=== PATIENT | female | born 1995 | race Caucasian/White ===

== ENCOUNTER 2019-12-15 11:06 | Emergency (ER) | payer OTHER, SELFPAY ==
[2019-12-15 11:35] VITALS: BP 118/70; PULSE 68; RESP 16; TEMP 36.6; O2SAT 100
--- NOTE | 2019-12-15 12:28 | ED.URI ---
HPI - URI/Sore Throat General Chief Complaint: Upper Respiratory Infection Stated Complaint: Flu Test Time Seen by Provider: 12/15/19 12:28 Source: patient and family History of Present Illness HPI Narrative: Patient was sent in for testing for influenza and strep. Patient had emesis x1 at work last night and was sent home from work due to illness. Patient states her symptoms have since resolved denies any cough no fever no shortness of breath no chest pain. Patient reports normal appetite normal activity states she is a normally healthy individual and just he needs a note to return to work tomorrow. MD elicited complaint: cough, sore throat and rhinorrhea Related Data Home Medications Medication Instructions Recorded Confirmed norgestimate-ethinyl estradiol 1 tablet PO DAILY 12/15/19 12/15/19 [Estarylla] Allergies Allergy/AdvReac Type Severity Reaction Status Date / Time Penicillins Allergy Unknown Unknown Verified 12/15/19 11:48 Review of Systems Review of Systems: Narrative: CONSTITUTIONAL: Denies chills, or sweats. Reports fever and generalized body aches EYES: Denies visual changes, redness, or discharge. ENT: Denies otalgia. Reports nasal congestion runny nose and sore throat CARDIOVASCULAR: Denies chest pain, palpitations, or edema. RESPIRATORY: Denies dyspnea. Reports occasional cough GASTROINTESTINAL: Denies abdominal pain, nausea, vomiting, or diarrhea. GENITOURINARY: Denies dysuria or hematuria. SKIN: Denies rash or itching. MUSCULOSKELETAL: Denies back pain, joint pain, or myalgia. Reports generalized body aches NEUROLOGIC: Denies headache, numbness, or weakness. PSYCHIATRIC: Denies anxiety or depression. PMFSH Family History Family History Mother Family history of malignant neoplasm of breast in first degree relative Social History Social History Smoking status: Never smoker Alcohol intake: never Comments At time of signature, agree with nursing past medical, surgical, social and family history. There is no relevant family history pertinent to the presenting complaint Exam Narrative: Exam Narrative: GENERAL APPEARANCE: The patient is a well-developed, well-nourished , in no acute distress. SKIN: Skin is warm and dry without erythema, swelling or exudate. There is good turgor. No tenting. HEAD: Atraumatic. Normocephalic. No temporal or scalp tenderness. EYES: Moist and bright. Sclera and conjunctivae normal. No discharge. PERRLA. Extraocular motions intact. Gross visual acuity intact. EARS: Pinna is normal shape and contour. Clear external auditory canals. TM pearly lomas with good cone of light, no erythema or suppuration. Bilateral cerumen noted no gross hearing deficit. NOSE: pink, moist mucosa with good air movement. Clear rhinorrhea without nasal flaring. Septum midline. Mouth: moist mucous membranes. THROAT; mild erythema noted to posterior oropharynx with moderate postnasal drainage. Without exudate or ulceration.. Uvula midline. Normal movement of soft palate. NECK: Supple and nontender with full range of motion without discomfort. No meningeal signs. LUNGS: Equal and bilateral breath sounds without wheezes, rales or rhonchi. CHEST: The chest wall is without retractions or use of accessory muscles. HEART: Has a regular rate and rhythm without murmur, gallops, click or rub. ABDOMEN: Soft, nontender with positive active bowel sounds. No rebound tenderness. EXTREMITIES: Without cyanosis, clubbing or edema. Equal 2+ distal pulses and 2 second capillary refill noted. NEUROLOGIC: alert, active, developmentally normal for age. The patient moves all extremities with normal muscle strength. Normal muscle tone is noted. Normal coordination is noted. NO focal neurological findings noted. Course Vital Signs Vital signs: Vital Signs Temperature 36.6 C 12/15/19 11:35 Pulse Rate 68
== END 2019-12-15 12:30 | disposition home or self-care (01) ==
PROVIDERS: Emergency Provider Nurse Practitioner Family
DX: J06.9 Acute upper respiratory infection, unspecified (principal)
CPT/HCPCS: 87804; 99213; G0463

== ENCOUNTER 2025-04-15 17:16 | Emergency (ER) | payer OTHER, SELFPAY ==
--- OUTSIDE RECORDS SUMMARY | 2025-04-15 17:18 | XMS_ITS | Clinical Summary ---
Author Organization [facility] [address] Address [address] [place] [address] Phone Care Team Providers Care Senior Business Consultant Name Role Phone Andrew Walton MD Primary Care Provider [phone] Allergies Active Allergy Reactions Criticality Noted Date Comments Ray Swelling Medium 05/27/2018 LIP SWELLING Penicillin Hives,Rash Medium Reaction: Rash, Medications spironolactone (ALDACTONE) 50 mg tablet Take 150 mg by mouth daily Active multivitamin capsule Take 1 capsule by mouth daily Active Zenatane 40 mg capsule 12/03/2022 Active Active Problems Problem Noted Date Diagnosed Date Genital warts 10/25/2019 Overweight 10/23/2018 Mild intermittent asthma 05/10/2015 Overview (01/03/2017): Mild intermittent asthma Acne 04/29/2013 Overview (01/01/2017): Acne Headache 08/09/2008 Overview (01/03/2017): Headache Atopic rhinitis 07/20/2007 Overview (01/01/2017): Allergic rhinitis Recurrent sinusitis 09/24/2006 Overview (01/01/2017): Recurrent sinusitis Resolved Problems Problem Noted Date Diagnosed Date Resolved Date Acute streptococcal pharyngitis 08/12/2014 05/14/2020 Overview (05/14/2020): See office note. Medical examinations/reports status 04/27/2013 05/14/2020 Overview (01/01/2017): Health care maintenance Patellofemoral syndrome 01/19/201004/29 Overview (05/14/2020): [facility], details lacking. Asthma 11/09/1999 05/14/2020 Overview (01/03/2017): Asthma Immunizations Immunization Administration Dates Next Due DTaP 5 Pertussis 12/21/2002, 9,06/19/1998,04/17,02/14/1998 HPV9 05/15/2021,01/08/2021,11/09/2020 Hep B, Adolescent or Pediatric 06/19/1998,1997,1997 Hib (HbOC) 03/23/1999, 8,04/17/1998,02/14 IPV 12/21/2002, 9,04/17/1998,02/14 Influenza, Trivalent, IM (MDV) 08/09/2008,2006 MMR 12/21/2002,12/18/1998 Meningococcal MCV4P (Menactra) 05/10/2015 Meningococcal Polysaccharide (Menomune) 04/10/2011 Tdap 05/16/2009 Varicella 04/29/2014,12/18/1998 Surgical History Surgery Date Site/Laterality Comments OTHER SURGICAL HISTORY R tibial tuberosisity avulsion FX: Dr. Baez TONSILLECTOMY 09/29/2017 - 09/28/2018 WISDOM TOOTH EXTRACTION Medical History Medical History Date Comments Medical examinations/reports status 04/27/2013 Health care maintenance Asthma 11/09/1999 Asthma Acute streptococcal pharyngitis 08/12/2014 See office note. Patellofemoral syndrome 01/19/2010 [facility], det ails lacking. Tibial fracture 2007 R tibial tuberos isity avulsion FX Family History Medical History Relation Name Comments Melanoma Father somewhere in hi s 40's Skin cancer Maternal Grandfather hx agen t orange Breast cancer Maternal Grandmother Cancer , breast; Allergies Mother Allergies; Spri ng and fall Breast cancer Mother Cancer, breast ; RED 11/13/2015 -Negative genetic testing age 37 per 2021 questionnaire Ovarian cancer Mother's Sister Cancer, ov farzana; Other Other 1 Not doing so we ll as of 8-12. Other Other 2 Not doing so we ll as of 8-12. Coronary artery disease Other 3 Fami ly history of Coronary artery disease; Other Other 4 Not doing so we ll as of 8--12. Diabetes Other 5 Family history of Diabetes mellitus; Other Other 6 Not doing so we ll as of 8--12. Hypertension Other 7 Family history of Hypertension; Other Other 8 Not doing so we ll as of 8--12. Migraines Other 9 Family history of Migraines; Other Other 10 Not doing so we ll as of 8--12. Thyroid disease Other 11 Family histo ry of Thyroid disease; Other Other 12 Not doing so we ll as of 8--12. Other Other 13 Family history of Deafness; Other Other 14 Not doing so we ll as of 8--12. Other Other 15 Family history of Eating disorder; Other Other 16 Not doing so we ll as of 8--12. Other Other 17 No family histo ry of Sudden <50; Other Other 18 Not doing so we ll as of 8--12. Other Other 19 Not doing so we ll as of 8--12. Breast cancer Other 20 [facility]M Cancer, breast ; Other Other 21 Not doing so we ll as of 8--12. Other Other 22 Not doing so we ll as of 8--12. Relation Name Status Comments Father Maternal Grandfather Maternal Grandmother Mother Mother's Sister Other 1 Other 2 Other 3 Other 4 Other 5 Other 6 Other 7 Other 8 Other 9 Other 10 Other 11 Other 12 Other 13 Other 14 Other 15 Other 16 Other 17 Other 18 Other 19 Other 20 MGGM Other 21 Other 22 Social History Tobacco Use Types Packs/Day Years Used Date Smoking Tobacco: Former Smokeless Tobacco: Never Tobacco Cessation:Counseling Given: Not Answered Comments:socially Alcohol Use Standard Drinks/Week Comments Yes 0 (1 standard drink = 0.6 oz pur e alcohol) AUDIT-C Answer Date Recorded Q1: How often do you have a drink containing alc ohol? Monthly or less 12/24/2021 Average Number of Drinks Not on file 022 Frequency of Binge Drinking Not on file 11/28 Comments No Sex and Gender Information Value Date Recorded Sex Assigned at Not on file Legal Sex Female 8:49 AM DIRECTOR OF BUSINESS CONTINUITY Gender Identity Not on file Sexual Orientation Not on file Occupation Industry Job Start Date Job End Date [employer] title Not on file Not on file Not on file History Length Weight Head Circum Date/Time Gestation Age D/C Weight APGARs Delivery Method Feeding 1995 Uncomplicated , det ails lacking. Obstetrics History Para Term AB IAB SAB Ectopic Multiple Livin g Live Births 0 0 0 0 0 0 0 0 0 0 0 Last Filed Vital Signs Vital Sign Reading Time Taken Comments Blood Pressure 124/76 12/24/2022 8:45 AM CDT Pulse 79 05/27/2018 10:11 AM CDT Temperature 36.2 C (97.1 F) 05/27/2018 10:11 AM CDT Respiratory Rate - - Oxygen Saturation 98% 05/27/2018 10:11 AM CDT Inhaled Oxygen Concentration - - Weight 85.8 kg (189 lb 3.2 oz) 12/24/2022 8:45 A M CDT Height 163.8 cm (5' 4.5) 12/24/2022 8:45 AM CDT Body Mass Index 31.97 12/24/2022 8:45 AM CDT Plan of Treatment Health Maintenance Due Date Last Done Comments Depression Screening 1995 Hepatitis C Screening 1997 Pneumococcal vaccine <65 (1 of 2 - PCV) 2016 DTaP/Tdap/Td Vaccine (7 - Td or Tdap) 05/16/2019 05/16/2009, 12/21/2002, 03/23/1999, Additional history exists Cervical Cancer Screening 12/25/20232022, 11/16/2021, 11/09/2020, Additional history exists Regular Well Visit/Exam 18-64 12/25/2023, 11/16/2021, 11/09/2020, Additional history exists Influenza Vaccine (#1) 2025 , 08/09/2008, 09/04/2007 Hepatitis B Screening Completed 06/19/1998 , 02/14/1998, 1997 Varicella Vaccines Completed 04/29/2014, 12/18/1998 HPV Vaccines Completed 05/15/2021, 12/28, 11/09/2020 Procedures Procedure Name Priority Date/Time Associated Diagnosis Comments PAP WITH REFLEX TO HIGH RISK HPV Routine 12/24/2022 7:57 AM CDT Screening for malignant neoplasm of the cervix Papanicolaou smear of cervix with atypical squamous cells of undetermined significance (ASC-US) from Last 3 Months or Most Recently Relevant to Health Maintenance Results * Pap with reflex to High Risk HPV (12/24/2022 7:57 AM CDT) Thin prep (Pap test) 12/24/2022 7:57 AM CDT 12/24/2022 7:57 AM CDT Narrative PATHOLOGY - 12/26/2022 5:22 PM CDT [facility] Department of Pathology [address] [place] [address] Final Report Note to Patients: This report may contain a detailed description of human tissue sent by a health care provider to the laboratory for pathologic evaluation. The content of this report is essential for diagnosis and may provide important critical findings. This information may be unfamiliar to patients to review without a medical professional present. It is advised that the patient review this report in the presence of a health care provider who can answer questions and explain the details. Patient Name: ARVIND VALDEZ Address: [address] [place] [address] Gender: F : 1995 (Age: 27) Service: Location: [facility] : [id number] [facility] #: [id number] Patient Type: SPECIMEN Taken: 12/24/2022 Received: 12/24/2022 Accessioned:: 12/25/2022 Reported: 12/26/2022 Physician(s): MD Amalia Khan MD Diagnosis: SOURCE OF SPECIMEN Imaged Thinprep Pap Test w/ Reflex HPV - Mobile Designer Cytologic Material: STATEMENT OF ADEQUACY - Specimen satisfactory for interpretation; endocervical/transformation zone component absent or insufficient GENERAL CATEGORIZATION: - Negative for intraepithelial lesion or malignancy INTERPRETATION: - Fungal organisms present, morphologically consistent with davina species BAY Hernandez(ASCP)BAY Ramos(ASCP) Report Electronically Reviewed and Signed Out By BAY Ramos(ASCP) 12/26/2022 17:22:39Specimen(s) Received: A: Imaged Thinprep Pap Test w/ Reflex HPV - Mobile Designer Cytologic Material Clinical History: Last Menstrual Period: 12/15/22 Menstrual History: Previous Abnormal Pap: 10/2021 ASCUS Clinical History: colposcopy 11/2021 normal cervical biopsy The Pap test is a screening test used to aid in the detection of cervical cancer and its precursors. It should not be the sole means by which malignant and premalignant lesions are diagnosed. Both false negative and false positive results may occur. It also has poor sensitivity for the detection of endometrial lesions and should not be used to evaluate suspected endometrial abnormalities. For these reasons it is most important to obtain Pap tests at regular intervals. The performance characteristics of some immunohistochemical stains, fluorescence in-situ hybridization tests and immunophenotyping by flow cytometry cited in this report (if any) were determined by the Surgical Pathology Department at [facility] as part of an ongoing director of quality control program and in compliance with federally mandated regulations drawn from the Clinical Laboratory Improvement Act of 1988 (CLIA '88). Some of these tests rely on the use of analyte specific reagents and are subject to specific labeling requirements by the US Food and Drug Administration. Such diagnostic tests may only be performed in a facility that is certified by the Department of Health and Human Services as a high complexity laboratory under CLIA '88. The FDA has determined that such clearance or approval is not necessary. This test is used for clinical purposes. It should not be regarded as investigational or for research. Nevertheless, federal rules concerning the medical use of analyte specific reagents require that the following disclaimer be attached to the report: This test was developed and its performance characteristics determined by the Surgical Pathology Department [facility]. It has not been cleared or approved by the U. S. Food and Drug Administration. Amalia Rangel MD LAB CYTOLOGY ORDERABL ES Final Result PATHOLOGY [id number] [place] [address] from Last 3 Months or Most Recently Relevant to Health Maintenance Insurance [facility] CHOICE PL[employer] [facility] HMO/PPO Address: [place] [address] [facility] [place] [address] [facility] CHOICE PLUS [facility] H[facility]/PPO Address: [facility] [id number] [place] [id number] Care Teams Senior Business Consultant Relationship Specialty Start Date End Date Andrew Walton MD [address] [address] PCP - General Family Medicine 11/16/21
--- OUTSIDE RECORDS SUMMARY | 2025-04-15 17:18 | XMS_ITS | Clinical Summary ---
Author Organization [facility] Address [address] [facility] [place] [address] Care Team Providers Care Mallet Cutter Name Role Phone Amalia Rangel MD Primary Care Provide r Unavailable Source Comments [facility],non-owned Affiliates and Associated Physician Practices is amultiple site organization consisting of ambulatory clinics and hospital sitesin [place], [place], [place] and [place]. This disclosure is being madepursuant to the Care Everywhere program and may not contain all information available regarding this patient. Last updated [email or web address] [facility] Allergies Active Allergy Reactions Criticality Noted Date Comments Penicillins Swelling 01/19/2010 Medications * Be aware that medications may not be up to date on this document. Alwaysverify current medications with the patient. SPIRONOLACTONE PO Ac tive Norethin Naga-Eth Estrad-FE ( PO) Active Active Problems Problem Noted Date Diagnosed Date Pain in limb 01/19/2010 Patellofemoral syndrome 01/19/2010 Family History Medical History Relation Name Comments Broken Bones Father Anesthesia Reaction Maternal Aunt Hypertension Maternal Aunt Cancer Maternal Grandfather Diabetes Maternal Grandfather Hypertension Maternal Grandfather Asthma Maternal Grandmother Cancer Maternal Grandmother Diabetes Maternal Grandmother Osteoporosis Maternal Grandmother Allergy (Severe) Maternal Uncle Cancer - Breast Mother Asthma Sister Relation Name Status Comments Father Alive Maternal Aunt Maternal Grandfather Maternal Grandmother Maternal Uncle Mother Sister Social History Tobacco Use Types Packs/Day Years Used Date Smoking Tobacco: Never Smokeless Tobacco: Never Alcohol Use Standard Drinks/Week Comments Yes 0 (1 standard drink = 0.6 oz pur e alcohol) Monthly Comments No Sex and Gender Information Value Date Recorded Sex Assigned at Not on file Legal Sex Female 8:47 AM COMPLAINT INVESTIGATIONS OFFICER Gender Identity Not on file Sexual Orientation Not on file Last Filed Vital Signs Vital Sign Reading Time Taken Comments Blood Pressure 110/66 10/26/2018 6:46 PM COMPLAINT INVESTIGATIONS OFFICER Pulse 79 10/26/2018 6:46 PM COMPLAINT INVESTIGATIONS OFFICER Temperature 37.1 C (98.7 F) 10/26/2018 6:46 PM COMPLAINT INVESTIGATIONS OFFICER Respiratory Rate - - Oxygen Saturation 98% 10/26/2018 6:46 PM COMPLAINT INVESTIGATIONS OFFICER Inhaled Oxygen Concentration - - Weight 68 kg (150 lb) 10/26/2018 6:46 PM COMPLAINT INVESTIGATIONS OFFICER Height 160 cm (5' 3) 10/26/2018 6:46 PM COMPLAINT INVESTIGATIONS OFFICER Body Mass Index 26.57 10/26/2018 6:46 PM COMPLAINT INVESTIGATIONS OFFICER Plan of Treatment Health Maintenance Due Date Last Done Comments HIV SCREENING 2012 HEPATITIS C SCREENING 12/11/2015 DTAP/TDAP/TD VACCINES (1 - Tdap) 2016 HEPATITIS B VACCINE (1 of 3 - 19+ 3-dose series) 2016 COVID-19 VACCINE ( - 2023-2 5 season) 2024 DEPRESSION SCREENING 09/29/2024 HPV VACCINE (1 - 3-dose SCDM series) 2024 INFLUENZA VACCINE (#1) 2025 8, 09/04/2007 ZOSTER VACCINE (1 of 2) 12/16/2047 HIB VACCINE Aged Out No longer eligi ble based on patient's age to complete this topic MENINGOCOCCAL (Group B) VACCINE SHARED DECISION-MAKING Aged Out No longer eligible based on patient's age to complete this topic MENINGOCOCCAL GROUPS A/C/Y/W VACCINE Aged Out No longer eligible b ased on patient's age to complete this topic PNEUMOCOCCAL VACCINE Aged Out No long er eligible based on patient's age to complete this topic Insurance Care Teams Mallet Cutter Relationship Specialty Start Date End Date Amalia Rangel MD PCP - General Obstetrics and Gynecology 03/01/18
--- OUTSIDE RECORDS SUMMARY | 2025-04-15 17:18 | XMS_ITS | Clinical Summary ---
Author Organization [facility] Address [address] [place] [address] Phone Care Team Providers Care Application Support Lead Name Role Phone Unavailable Primary Care Provider Unavailabl e Allergies Active Allergy Reactions Criticality Noted Date Comments Penicillin G Hives 02/10/2020 Penicillins Rash,Swelling 01/19/2010 Reaction: Rash, Medications ESTARYLLA 0.25-35 MG-MCG Tablet TK 1 T PO D 01/17/2020 Active spironolactone (ALDACTONE) 50 MG Tablet TAKE 3 TABLETS BY MOUTH EVERY DAY 05/28/2021 Active Immunizations Immunization Administration Dates Next Due Hib (HbOC) 03/23/1999, 8,04/17/1998,02/14 Human Papillomavirus (HPV) 9 -valent Vaccine 05/15/2021,01/08/2021,11/09/2020 Influenza Vaccine, Quadrivalent, PF 06/26/2021 Family History Medical History Relation Name Comments No Known Problems Father Cancer Maternal Grandfather Cancer Maternal Grandmother Diabetes Maternal Grandmother Cancer Mother Diabetes Paternal Grandfather Diabetes Paternal Grandmother No Known Problems Sister Relation Name Status Comments Father Alive Maternal Grandfather Maternal Grandmother Alive Mother Paternal Grandfather Paternal Grandmother Sister Alive Social History Tobacco Use Types Packs/Day Years Used Date Smoking Tobacco: Never Smokeless Tobacco: Never Tobacco Cessation:Counseling Given: Yes Alcohol Use Standard Drinks/Week Comments Yes 4 (1 standard drink = 0.6 oz pur e alcohol) AUDIT-C Answer Date Recorded Q1: How often do you have a drink containing alc ohol? 2-4 times a month 02/10/2020 Q2: How many drinks containi ng alcohol do you have on a typical day when you are drinking? 3 or 4 02/10/2020 Frequency of Binge Drinking Not on file 01/27 PHQ-2 Answer Date Recorded Total Score - Questions 1-9 0 05/31 Sexually Active Control Partners Comments Yes Oral Contraceptive Comments Unknown Sex and Gender Information Value Date Recorded Sex Assigned at Not on file Legal Sex Female 10:44 PM CDT Gender Identity Not on file Sexual Orientation Not on file Last Filed Vital Signs Vital Sign Reading Time Taken Comments Blood Pressure 118/68 06/26/2021 4:17 PM CDT Pulse 57 06/26/2021 4:17 PM CDT Temperature 36.7 C (98.1 F) 06/26/2021 4:17 PM CDT Respiratory Rate 16 06/26/2021 4:17 PM CDT Oxygen Saturation 100% 06/26/2021 4:17 PM CDT Inhaled Oxygen Concentration - - Weight 76.8 kg (169 lb 4.8 oz) 06/26/2021 4:17 P M CDT Height 162.6 cm (5' 4) 06/26/2021 4:17 PM CDT Body Mass Index 29.06 06/26/2021 4:17 PM CDT Plan of Treatment Health Maintenance Due Date Last Done Comments Hepatitis C Virus (HCV) Screening 1995 TdaP Immunization 1997 Hepatitis B Immunization (1 of 3 - 19+ 3-dose series) 2016 Pap Smear 2018 SARS-COV-2 Immunization ( season) 2024 Influenza Immunization (#1) 2025 06/26/2021 Respiratory Syncytial Virus (RSV) Immunization (Adult) (1 - 1-dose 75+ series) 2072 Human Papillomavirus (HPV) Immunization Completed 05/15/2021, 01/08/2021, 11/09/2020 Meningococcal Immunization (ACWY) Aged Out No longer eligible b ased on patient's age to complete this topic Pneumococcal Immunization Combined Aged Out No longer eligible b ased on patient's age to complete this topic Rotavirus Immunization Aged Out No lo nger eligible based on patient's age to complete this topic
--- OUTSIDE RECORDS SUMMARY | 2025-04-15 17:18 | XMS_ITS | Referral Summary ---
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 Department of Pathology [address] [place], [place] [id number] Final Report Note to Patients: This report [...] the details. Patient Name: ARVIND VALDEZ Address: [address] [place] [address] Gender: F : 1995 (Age: 27) Service: Location: N : [id number] [facility] #: [id number] Patient Type: SPECIMEN Taken: 12/24/2022 Received: 12/24/2022 Accessioned:: 12/25/2022 Reported: 12/26/2022 Physician(s): MD Amalia Khan MD Diagnosis: SOURCE OF SPECIMEN Imaged Thinprep Pap Test w/ Reflex HPV - Clinic Charge Nurse Cytologic Material: STATEMENT OF ADEQUACY - Specimen satisfactory for interpretation; endocervical/transformation zone component absent or insufficient GENERAL CATEGORIZATION: - Negative for intraepithelial lesion or malignancy INTERPRETATION: - Fungal organisms present, morphologically consistent with davina species BAY Hernandez(ASCP)BAY Ramos(ASCP) Report Electronically Reviewed and Signed Out By BAY Ramos(ASCP) 12/26/2022 17:22:39Specimen(s) Received: A: Imaged Thinprep Pap Test w/ Reflex HPV - Clinic Charge Nurse Cytologic Material Clinical History: Last Menstrual Period: [...] determined by the Surgical Pathology Department at [facility] as part of an ongoing quality control lead program and in compliance with federally mandated [...] characteristics determined by the Surgical Pathology Department [facility]. It has not been cleared or approved by the U. S. Food and Drug Administration. Amalia Rangel MD LAB CYTOLOGY ORDERABL ES Final Result PATHOLOGY [address] [place] [address] from Last 3 Months or Most Recently Relevant to Health Maintenance Insurance [facility]/PPO Address: [address] [address] [facility]/PPO Address: [address] [address] [place] [address] [facility] CHOICE PLUS [facility] HMO/PPO Address: [address] [place] [address] Care Teams Senior Web Applications Developer Relationship Specialty Start Date End Date Andrew Walton MD [address] [place] [address] PCP - General Family Medicine 11/16/21
[2025-04-15 17:20] VITALS: BP 142/78; PULSE 87; RESP 16; TEMP 37.2; O2SAT 100
--- NOTE | 2025-04-15 17:49 | ED_ITS ---
HPI - URI/Sore Throat General Chief Complaint: Upper Respiratory Infection Stated Complaint: ear/head congestion Time Seen by Provider: 04/15/25 17:50 Source: patient and RN notes reviewed Mode of arrival: ambulatory Limitations: no limitations History of Present Illness HPI Narrative: 29-year-old female presents with concern for sinus congestion, ear pain, eye drainage, sore throat. Reports ear pain and eye drainage are new. She reports she felt feverish today. She did not take her temperature. She has been taking allergy medication. MD elicited complaint: cough, nasal congestion and other (ear pain) Related Data Home Medications ?Medication ?Instructions ?Recorded ?Confirmed ?Last Taken ?Type norgestimate 0.25 mg-ethinyl 1 tablet PO DAILY 12/15/19 12/15/19 Unknown History estradiol 0.035 mg tablet (Estarylla) Allergies Allergy/AdvReac Type Severity Reaction Status Date / Time Penicillins Allergy Unknown Unknown Verified 12/15/19 11:48 Review of Systems Review of Systems: CONSTITUTIONAL: Reports malaise. Denies chills, sweats, or fever. EYES: Denies visual changes, redness, or discharge. ENT: Reports rhinorrhea, congestion, sinus pain, otalgia and sore throat. CARDIOVASCULAR: Denies chest pain, palpitations, or edema. RESPIRATORY: Reports cough. Denies dyspnea. GASTROINTESTINAL: Denies abdominal pain, nausea, vomiting, diarrhea SKIN: Denies rash or itching. MUSCULOSKELETAL: Reports myalgia. NEUROLOGIC: Reports headache. All systems reviewed & are unremarkable except as noted in HPI and below PMFSH Family History Family History Mother Family history of malignant neoplasm of breast in first degree relative Social History Social History Smoking status: Never smoker Alcohol intake: never Comments At time of signature, agree with nursing past medical, surgical, social and family history. There is no relevant family history pertinent to the presenting complaint Exam Narrative: GENERAL: Well-appearing, well-nourished, and in no acute distress. HEAD: Normocephalic EYES: PERRLA, left conjunctivae clear. Right sclera injected with small amount of green drainage noted ENT: Nares clear, turbinates edematous and erythematous. Mucous membranes moist. TM pearly viera with dull light reflex on left, erythematous on the right; no tragal tenderness. Oropharynx erythematous without lesions. Tonsils not enlarged and without exudate, no drooling, no hoarseness, no trismus, uvula midline. NECK: Supple. No lymphadenopathy CHEST: Clear to auscultation, breath sounds equal. No wheezing, rhonchi, rales, or stridor. No respiratory distress, speaks in full sentences. HEART: Regular rate and rhythm. No murmur heard. SKIN: Warm, dry, no rash. NEURO: Alert and oriented x3. PSYCH: Normal mood and affect Course Course Emergency Course: Patient is aware of diagnosis, understands and agrees to treatment plan. Anticipatory guidance given. Patient agrees to follow-up as directed and is aware of reasons to seek care at the emergency department. Portions of this record may have been created with voice recognition software Level of Care: Express Care Visit Vital Signs Vital signs: Vital Signs Temperature 98.9 F 04/15/25 17:20 Pulse Rate 87 04/15/25 17:20 Respiratory Rate 16 04/15/25 17:20 Blood Pressure 142/78 H 04/15/25 17:20 Pulse Oximetry 100 04/15/25 17:20 Oxygen Delivery Room Air 04/15/25 17:20 Temperature 98.9 F 04/15/25 17:20 Pulse Rate 87 04/15/25 17:20 Respiratory Rate 16 04/15/25 17:20 Blood Pressure 142/78 H 04/15/25 17:20 Pulse Oximetry 100 04/15/25 17:20 Oxygen Delivery Room Air 04/15/25 17:20 Reviewed. MDM - URI/Sore Throat MDM Narrative Medical decision making narrative: Differential diagnosis considered: Lopez virus, strep pharyngitis, allergic rhinitis, upper respiratory tract infection, sinusitis, rhinosinusitis, nasopharyngitis. viral pharyngitis, otitis media, otitis externa, pneumonia, bronchitis, viral cough syndrome, viral syndrome, and influenza. Exam findings show no acute concerns or changes; patient is non-toxic appearing and is in no distress. Patient is appropriate for outpatient treatment and follow-up. Lab Data Attestation: I reviewed the patient's lab results. Critical Care Time Critical Care Time Critical Care Time: No Discharge Plan Discharge Clinical Impression: Otitis media Patient Disposition: Home Condition: Stable Instructions: Antibiotic Form, Ear Infection (ED) Additional Instructions: Take antibiotics as directed. Recommend antihistamine such as Benadryl at night time and Zyrtec or Luzma during the day until symptoms improve Flonase nasal spray, 2 sprays in each nostril once daily until symptoms improve Also, recommend symptomatic treatment includes: rest, fluids, and increase humidity of the air at home. Recommend Acetaminophen as directed on the bottle to reduce fever, pain Please schedule a follow-up visit with your personal physician for further evaluation and treatment within 3-5days. If your symptoms persist, change or worsen significantly before you can contact your personal physician then please, without delay, go to the emergency department for further evaluation. Patient Language: [place] Prescriptions: New cefdinir 300 mg capsule 300 mg PO Q12H 10 Days Qty: 20 0RF No Action norgestimate-ethinyl estradiol [Estarylla] 0.25-35 mg-mcg Tablet 1 tablet PO DAILY Follow-up/Referrals: Isabelle,Andrew Shelton MD [Primary Care Provider] - Stand Alone Forms: Work/School Release IP Time of Disposition: 17:57
== END 2025-04-15 18:02 | disposition home or self-care (01) ==
PROVIDERS: Emergency Provider Nurse Practitioner; PCP Internal Medicine
DX: H66.91 Otitis media, unspecified, right ear (principal)
CPT/HCPCS: 99213; G0463